=== PATIENT | male | born 1980 | race Hispanic/Latino ===

== ENCOUNTER 2018-03-18 16:24 | Emergency (ER) | payer BC ==
--- NOTE | 2018-03-18 17:21 | ER ---
Nurse's Notes [facility] Name: Tyler Diamond Jr Age: 37 yrs Sex: Male : 1980 Arrival Date: 03/18/2018 Time: 16:28 Bed Waiting Private MD: Diagnosis: Presentation: 03/18 16:29 Presenting complaint: Patient states: they gave (dr. fan) gave me this medicine tw2 yesterday (Metformin 500 mg 1 tab twice a day). Transition of care: patient was not received from another setting of care. 16:29 Method Of Arrival: Ambulatory tw2 16:32 Onset of symptoms was March 18, 2018. Risk Assessment: Do you want to hurt yourself tw2 or someone else? Patient reports no desire to harm self or others. Initial Sepsis Screen: Does the patient meet any 2 criteria? No. Patient's initial sepsis screen is negative. Does the patient have a suspected source of infection? No. Patient's initial sepsis screen is negative. Care prior to arrival: None. 16:32 Acuity: ANNA MARIE 3 tw2 Historical: - Allergies: 16:32 No Known Drug Allergies; tw2 - Home Meds: 16:32 lisinopril 20 mg Oral tab 1 tab BID for Hypertension [Active]; metformin 500 mg Oral tw2 tab 1 tab 2 times per day [Active]; - PMHx: 16:32 Anxiety; Hypertension; tw2 - PSHx: 16:32 None; tw2 - Immunization history:: Adult Immunizations. - Social history:: Smoking status: . - Ebola Screening: : Patient negative for fever greater than or equal to 101.5 degrees Fahrenheit, and additional compatible Ebola Virus Disease symptoms. Vital Signs: 16:31 BP 150 / 87; Pulse 117; Resp 18; Temp 97.7(TE); Pulse Ox 100% on R/A; Pain 0/10; tw2 ED Course: 16:28 Patient arrived in ED. sb2 16:31 Arm band placed on. tw2 16:32 Triage completed. tw2 Administered Medications: No medications were administered Point of Care Testing: Blood Glucose: 16:35 Blood Glucose: 124 mg/dL; tw2 Ranges: Outcome: 17:19 Eloped from waiting room, post triage evaluation and consult. pt asked Verenice in tw2 registration if he needed to sign anything and said "im just going to go" Time discovered patient gone: March 18, 2018 at 17:20 17:19 Condition: stable 17:20 Patient left the ED. tw2 Signatures: Sandra Alvarenga RN RN tw2 Verenice Sanford sb2
== END 2018-03-18 17:20 | disposition left against medical advice (07) ==
LOC: ER 16:24
DX: Z53.21 Procedure and treatment not carried out due to patient leaving prior to being seen by health care provider (principal); I10 Essential (primary) hypertension; Z79.84 Long term (current) use of oral hypoglycemic drugs; Z79.899 Other long term (current) drug therapy
CPT/HCPCS: 82962; 99281

== ENCOUNTER 2018-04-18 00:22 | Emergency (ER) | payer BC, SELFPAY ==
[2018-04-18 02:04] LABS: Absolute Lymphocytes (CBC) 1.6 K/uL (0.7-4.9); Absolute Monocytes 0.7 K/uL (0.1-1.3); Absolute Neutrophil 2.2 K/uL (1.8-8.0); Basophils % 0.8 % (0-1.3); Eosinophils % 1.4 % (0-4.4); Hematocrit 39.7 % (39.6-49.0); Lymphocytes % 34.8 % (15.3-44.8); MPV 10.6 fL (7.6-11.3); RBC Red Blood Cell Count 4.63 M/uL (4.33-5.43)
[2018-04-18 02:11] LABS: Urine Bacteria <20 /HPF (NONE SEEN); Urine Culture Reflex Order NOT NEEDED; Urine RBC <5 /HPF (NONE SEEN)
[2018-04-18 02:25] LABS: BUN Blood Urea Nitrogen 16 mg/dL (7-18); Bicarbonate 24 mmol/L (21-32); Glucose Level 155 mg/dL (74-106); Magnesium 2.1 mg/dL (1.8-2.4); Potassium 3.6 mmol/L (3.5-5.1); Sodium Level 134 mmol/L (136-145)
[2018-04-18 02:31] LABS: Urine Blood TRACE (NEG); Urine Glucose NEGATIVE (NEG); Urine Protein NEGATIVE (NEG); Urine Specific Gravity <1.005 (1.005-1.030)
[2018-04-18] MEDS ORDERED: ONDANSETRON 4 MG/2 ML VIAL ONE (02:42)
[2018-04-18] MEDS ORDERED: METOCLOPRAMIDE 10 MG/2mL INJ ONE (02:42)
[2018-04-18] MEDS ORDERED: NA CHLORIDE 0.9% 1,000 ML ONE (02:43)
--- NOTE | 2018-04-18 03:20 | EDPHYS ---
Physician Documentation [facility] Name: Tyler Diamond Jr Age: 37 yrs Sex: Male : 1980 Arrival Date: 04/18/2018 Time: 00:24 Bed 14 Private MD: ED Physician Vipul Mejia HPI: 04/18 01:35 This 37 yrs old Male presents to ER via Ambulatory with complaints of Headache.cp 01:35 The patient complains of pain to the forehead. The patient describes the headache as cp aching, pounding, waxing and waning. Onset: The symptoms/episode began/occurred yesterday, and became worse this morning, now improved after taking blood pressure medication and OTC ibuprofen. Associated signs and symptoms: Pertinent positives: sinus congestion, Pertinent negatives: altered mental status, neck stiffness, paresthesias, vomiting, weakness. Historical: - Allergies: 00:45 No Known Allergies; cc3 - Home Meds: 00:45 lisinopril 20 mg Oral tab 1 tab BID for Hypertension [Active]; metformin 500 mg Oral cc3 tab 1 tab 2 times per day [Active]; - PMHx: 00:45 Anxiety; Hypertension; Diabetes - NIDDM; cc3 - PSHx: 00:45 feet surgery; cc3 - Immunization history:: Adult Immunizations not up to date. - Social history:: Smoking status: Patient/guardian denies using tobacco, but has a distant history of tobacco abuse. - Ebola Screening: : No symptoms or risks identified at this time. ROS: 01:40 Constitutional: Negative for body aches, chills, fever, poor PO intake. cp 01:40 Eyes: Negative for injury, pain, redness, and discharge. cp 01:40 Cardiovascular: Negative for chest pain, edema, palpitations. cp 01:40 ENT: Positive for sinus congestion, Negative for drainage from ear(s), ear pain, cp difficulty swallowing, difficulty handling secretions. 01:40 Respiratory: Positive for cough, Negative for shortness of breath, wheezing. 01:40 Abdomen/GI: Negative for abdominal pain, vomiting, diarrhea, constipation. 01:40 Skin: Negative for cellulitis, rash. 01:40 Neuro: Positive for headache, Negative for altered mental status, weakness. 01:40 All other systems are negative. Exam: 01:45 Constitutional: The patient appears in no acute distress, alert, awake, cp non-diaphoretic, non-toxic, well developed, well nourished. 01:45 Eyes: Pupils equal round and reactive to light, extra-ocular motions intact. Lids and cp lashes normal. Conjunctiva and sclera are non-icteric and not injected. Cornea within normal limits. Periorbital areas with no swelling, redness, or edema. 01:45 Head/face: Exam is negative for obvious evidence of injury or deformity, swelling, Noted is tenderness, that is mild, of the forehead. 01:45 ENT: External ear(s): are unremarkable, Ear canal(s): are normal, clear, TM's: dullness, bilaterally, Nose: is normal, Mouth: Lips: moist, Oral mucosa: pink and intact, moist, Posterior pharynx: Airway: no evidence of obstruction, patent, Tonsils: are normal in appearance, Uvula: midline, swelling, is not appreciated, erythema, is not appreciated, exudate, is not appreciated, Voice: is normal. 01:45 Neck: ROM/movement: is normal, is supple, without pain, no range of motions limitations, no meningismus, no nuchal rigidity, Lymph nodes: no appreciated lymphadenopathy. 01:45 Chest/axilla: Inspection: normal, Palpation: is normal, no crepitus, no tenderness. 01:45 Cardiovascular: Rate: tachycardic, Rhythm: regular, Edema: is not appreciated, JVD: is not appreciated. 01:45 Respiratory: the patient does not display signs of respiratory distress, Respirations: normal, no use of accessory muscles, no retractions, no splinting, no tachypnea, labored breathing, is not present, Breath sounds: are clear throughout, no decreased breath sounds, no stridor, no wheezing. 01:45 Abdomen/GI: Inspection: abdomen appears normal, Bowel sounds: active, all quadrants, Palpation: abdomen is soft and non-tender, in all quadrants, rebound tenderness, is not appreciated, voluntary guarding, is not appreciated, involuntary guarding, is not appreciated. 01:45 Back: pain, is absent, ROM is normal. 01:45 Skin: cellulitis, is not appreciated, no rash present. 01:45 Neuro: Orientation: to person, place \T\ time. Mentation: is normal, Cerebellar function: is grossly normal, Motor: is normal, Sensation: is normal. Vital Signs: 00:45 BP 121 / 88; Pulse 102; Resp 20 S; Temp 98.1; Pulse Ox 100% on R/A; Weight 137.44 kg cc3 (R); Height 6 ft. 1 in. (185.42 cm) (R); Pain 6/10; 02:20 BP 122 / 78; Pulse 98; Resp 19 S; Pulse Ox 100% on R/A; cc3 03:15 BP 120 / 72; Pulse 99; Resp 19 S; Pulse Ox 99% on R/A; cc3 00:45 Body Mass Index 39.98 (137.44 kg, 185.42 cm) cc3 MDM: 01:02 Patient medically screened. cp 01:40 Differential diagnosis: meningitis, meningoencephalitis, migraine, sinusitis, cp subarachnoid bleed, tension headache. 03:18 Data reviewed: vital signs, nurses notes, lab test result(s), radiologic studies, CT cp scan. Response to treatment: the patient's symptoms have markedly improved after treatment, VSS. Patient reports headache markedly improved, and as a result, I will discharge patient. 04/18 01:41 Order name: CBC with Diff cp 04/18 01:41 Order name: BMP cp 04/18 01:41 Order name: Magnesium cp 04/18 01:41 Order name: Urine Microscopic Only; Complete Time: 02:47 cp 04/18 02:47 Interpretation: Reviewed. cp 04/18 01:42 Order name: CBC with Automated Diff; Complete Time: 02:47 EDMS 04/18 02:47 Interpretation: Normal except: MN% 15.0. cp 04/18 01:42 Order name: Basic Metabolic Panel; Complete Time: 02:47 EDMS 04/18 02:47 Interpretation: Normal except: NA 134; GLUC 155. cp 04/18 01:41 Order name: CT Head Brain wo Cont cp 04/18 01:41 Order name: IV; Complete Time: 02:30 cp 04/18 01:41 Order name: Urine Dipstick-Ancillary (obtain specimen); Complete Time: 02:25 cp 04/18 01:42 Order name: Magnesium; Complete Time: 02:47 EDMS 04/18 02:48 Interpretation: MG 2.1; Reviewed. cp 04/18 02:26 Order name: Urine Dipstick--Ancillary (enter results); Complete Time: 02:47 em1 04/18 02:47 Interpretation: Normal except: UBLD TRACE. cp Administered Medications: 02:30 Drug: NS 0.9% 1000 ml Route: IV; Rate: 1 bolus; Site: right antecubital; cc3 03:30 Follow up: Response: No adverse reaction; IV Status: Completed infusion; IV Intake: cc3 1000ml 02:35 Drug: Zofran 4 mg Route: IVP; Site: right antecubital; cc3 03:00 Follow up: Response: No adverse reaction; Nausea is decreased cc3 02:40 Drug: Reglan 10 mg Route: IVP; Site: right antecubital; cc3 03:00 Follow up: Response: No adverse reaction cc3 Disposition: 03:34 Co-signature as Attending Physician, Vipul Mejia MD. pkl Disposition: 04/18/18 03:20 Discharged to Home. Impression: Headache. - Condition is Stable. - Discharge Instructions: General Headache Without Cause, How to Take Your Blood Pressure, [id number], Form - Blood Pressure Record Sheet. - Medication Reconciliation Form, Thank You Letter, Antibiotic Education, Prescription Opioid Use form. - Follow up: Private Physician; When: 2 - 3 days; Reason: Recheck today's complaints. - Problem is new. - Symptoms have improved. Signatures: Dispatcher [employer] Vipul Browning MD MD pkl Azael Barrera PA PA cp Cordel, Charlene cc3 Corrections: (The following items were deleted from the chart) 03:33 03:20 04/18/2018 03:20 Discharged to Home. Impression: Headache. Condition is Stable. cc3 Forms are Medication Reconciliation Form, Thank You Letter, Antibiotic Education, Prescription Opioid Use. Follow up: Private Physician; When: 2 - 3 days; Reason: Recheck today's complaints. Problem is new. Symptoms have improved. cp
--- NOTE | 2018-04-18 03:20 | ER ---
Nurse's Notes [facility] Name: Tyler Diamond Jr Age: 37 yrs Sex: Male : 1980 Arrival Date: 04/18/2018 Time: 00:24 Bed 14 Private MD: Diagnosis: Headache Presentation: 04/18 00:45 Presenting complaint: Patient states: headache since yesterday and fever since 3 days cc3 back. Transition of care: patient was not received from another setting of care. Onset of symptoms was April 16, 2018. Risk Assessment: Do you want to hurt yourself or someone else? Patient reports no desire to harm self or others. Initial Sepsis Screen: Does the patient meet any 2 criteria? No. Patient's initial sepsis screen is negative. Does the patient have a suspected source of infection? No. Patient's initial sepsis screen is negative. Care prior to arrival: Medication(s) given: Lisinopril at 0015H. 00:45 Method Of Arrival: Ambulatory cc3 00:45 Acuity: ANNA MARIE 3 cc3 Triage Assessment: 00:45 Headache History: The patient has had previous headaches and this one is different than cc3 previous episodes. General: Appears in no apparent distress. uncomfortable, Behavior is calm, cooperative, appropriate for age. Pain: Pain currently is 7 out of 10 on a pain scale. Pain began 1 day ago. Neuro: Level of Consciousness is awake, alert, obeys commands, Oriented to person, place, time, situation, Appropriate for age. 00:45 Pain: Also complains of no other associated symptoms. cc3 Historical: - Allergies: 00:45 No Known Allergies; cc3 - Home Meds: 00:45 lisinopril 20 mg Oral tab 1 tab BID for Hypertension [Active]; metformin 500 mg Oral cc3 tab 1 tab 2 times per day [Active]; - PMHx: 00:45 Anxiety; Hypertension; Diabetes - NIDDM; cc3 - PSHx: 00:45 feet surgery; cc3 - Immunization history:: Adult Immunizations not up to date. - Social history:: Smoking status: Patient/guardian denies using tobacco, but has a distant history of tobacco abuse. - Ebola Screening: : No symptoms or risks identified at this time. Screenin:45 Abuse screen: Denies threats or abuse. Denies injuries from another. Nutritional cc3 screening: No deficits noted. Tuberculosis screening: No symptoms or risk factors identified. Fall Risk Ambulatory Aid- None/Bed Rest/Nurse Assist (0 pts). Gait- Normal/Bed Rest/Wheelchair (0 pts) Mental Status- Oriented to own ability (0 pts). Assessment: 01:20 Reassessment: Patient appears in no apparent distress at this time. Patient and/or cc3 family updated on plan of care and expected duration. Pain level reassessed. Patient is alert, oriented x 3, equal unlabored respirations, skin warm/dry/pink. 02:18 Reassessment: Patient appears in no apparent distress at this time. Patient and/or cc3 family updated on plan of care and expected duration. Pain level reassessed. Patient is alert, oriented x 3, equal unlabored respirations, skin warm/dry/pink. 03:30 Reassessment: Patient appears in no apparent distress at this time. Patient and/or cc3 family updated on plan of care and expected duration. Pain level reassessed. Patient is alert, oriented x 3, equal unlabored respirations, skin warm/dry/pink. LONNIE Barrera discharged the patient home, no prescription given. IV cannula removed and patient left ER vitally stable and ambulatory with his . Vital Signs: 00:45 BP 121 / 88; Pulse 102; Resp 20 S; Temp 98.1; Pulse Ox 100% on R/A; Weight 137.44 kg cc3 (R); Height 6 ft. 1 in. (185.42 cm) (R); Pain 6/10; 02:20 BP 122 / 78; Pulse 98; Resp 19 S; Pulse Ox 100% on R/A; cc3 03:15 BP 120 / 72; Pulse 99; Resp 19 S; Pulse Ox 99% on R/A; cc3 00:45 Body Mass Index 39.98 (137.44 kg, 185.42 cm) cc3 ED Course: 00:24 Patient arrived in ED. ag3 00:45 Shi Aguiar is Primary Nurse. cc3 00:45 Arm band placed on right wrist. cc3 00:45 Patient has correct armband on for positive identification. Bed in low position. Call cc3 light in reach. Side rails up X 1. Pulse ox on. NIBP on. 00:58 Triage completed. cc3 01:02 Aazel Barrera PA is PHCP. cp 01:02 Vipul Mejia MD is Attending Physician. cp 02:[address] via wheelchair. kw1 02:13 CT Head Brain wo Cont In Process Unspecified. EDMS 02:14 CT completed. Patient tolerated procedure well. Patient moved back from CT. kw1 03:30 No provider procedures requiring assistance completed. IV discontinued, intact, cc3 bleeding controlled, No redness/swelling at site. Pressure dressing applied. Administered Medications: 02:30 Drug: NS 0.9% 1000 ml Route: IV; Rate: 1 bolus; Site: right antecubital; cc3 03:30 Follow up: Response: No adverse reaction; IV Status: Completed infusion; IV Intake: cc3 1000ml 02:35 Drug: Zofran 4 mg Route: IVP; Site: right antecubital; cc3 03:00 Follow up: Response: No adverse reaction; Nausea is decreased cc3 02:40 Drug: Reglan 10 mg Route: IVP; Site: right antecubital; cc3 03:00 Follow up: Response: No adverse reaction cc3 Intake: 03:30 IV: 1000ml; Total: 1000ml. cc3 Outcome: 03:20 Discharge ordered by MD. cp 03:30 Discharged to home ambulatory, with family. cc3 03:30 Condition: stable 03:30 Discharge instructions given to patient, family, Instructed on discharge instructions, follow up and referral plans. Demonstrated understanding of instructions, follow-up care. 03:33 Patient left the ED. cc3 Signatures: Dispatcher [employer] EDGA Azael Barrera PA PA cp Wilhelm, Kimberly kw1 Shi Aguiar cc3 Khushbu Craig 3
--- NOTE | 2018-04-18 10:09 | RAD REPORT ---
EXAM DESCRIPTION: CT - Head Brain Wo Cont - 04/18/2018 6:23 am CLINICAL HISTORY: Headache COMPARISON: 2016 TECHNIQUE: Computed axial tomography of the head was obtained. IV contrast was not requested. Prelim inary report generated by virtual radiologic and review prior to dictation All CT scans are performed using dose optimization technique as appropriate and may include automated exposure control or mA/KV adjustment according to patient size. FINDINGS: An intracranial bleed is not seen . The ventricles are normal in caliber. No extra-axial fluid collection is noted. Fluid within the sinuses/ mastoids is not seen. IMPRESSION: No acute intracranial abnormality is seen. If patient's symptoms persist MRI of the bra in would be recommended.
== END 2018-04-18 03:33 | disposition home or self-care (01) ==
LOC: ER 00:22
DX: R51 Headache (principal); I10 Essential (primary) hypertension; F41.9 Anxiety disorder, unspecified; E11.9 Type 2 diabetes mellitus without complications
CPT/HCPCS: 36415; 70450; 80048; 81003; 81015; 83735; 85025; 96361; 96374; 96375; 99284; J2405; J2765; J7030

== ENCOUNTER 2018-04-28 09:24 | Emergency (ER) | payer BC, SELFPAY ==
[2018-04-28] MEDS ORDERED: MORPHINE 4 MG/ML SYR ONE (10:21)
[2018-04-28] MEDS ORDERED: DIAZEPAM 10 MG/2 ML INJ SYRINGE ONE (10:22)
[2018-04-28] MEDS ORDERED: KETOROLAC 30 MG/ML INJ ONE ×2 (10:23→10:52)
--- NOTE | 2018-04-28 10:39 | RAD REPORT ---
EXAM DESCRIPTION: US - Extremity Venous Uni Ltd - 04/28/2018 10:27 am CLINICAL HISTORY: PAIN Leg swelling and edema. COMPARISON: No comparisons FINDINGS: Left lower extremity venous system was interrogated with Doppler technique. Normal flow, c ompressibility and augmentation was noted. There is no DVT present. IMPRESSION: No evidence of left lower extremity deep venous thrombosis.
--- NOTE | 2018-04-28 11:19 | ER ---
Nurse's Notes [facility] Name: Tyler Diamond Jr Age: 37 yrs Sex: Male : 1980 Arrival Date: 04/28/2018 Time: 09:29 Bed 19 Private MD: Tigre Alegria Diagnosis: Sciatica, left side Presentation: 04/28 09:49 Presenting complaint: Patient states: pain to left leg X 3 days, radiates from left iw lower back to left calf, went to chiropractor yesterday, had xray done, pain 2/10 while sitting, 10/10 when walking. Transition of care: patient was not received from another setting of care. Onset of symptoms was April 25, 2018. Risk Assessment: Do you want to hurt yourself or someone else? Patient reports no desire to harm self or others. Initial Sepsis Screen: Does the patient meet any 2 criteria? No. Patient's initial sepsis screen is negative. Does the patient have a suspected source of infection? No. Patient's initial sepsis screen is negative. Care prior to arrival: None. 09:49 Method Of Arrival: Wheelchair iw 09:49 Acuity: ANNA MARIE 4 iw Historical: - Allergies: 09:52 No Known Allergies; iw - Home Meds: 09:52 lisinopril 20 mg Oral tab 1 tab BID for Hypertension [Active]; metformin 500 mg Oral iw tab 1 tab 2 times per day [Active]; - PMHx: 09:52 Anxiety; Diabetes - NIDDM; Hypertension; iw - PSHx: 09:52 feet surgery; iw - Immunization history:: Adult Immunizations not up to date. - Social history:: Smoking status: Patient/guardian denies using tobacco. - Ebola Screening: : Patient negative for fever greater than or equal to 101.5 degrees Fahrenheit, and additional compatible Ebola Virus Disease symptoms Patient denies exposure to infectious person Patient denies travel to an Ebola-affected area in the 21 days before illness onset No symptoms or risks identified at this time. Screenin:35 Abuse screen: Denies threats or abuse. Denies injuries from another. Nutritional jl7 screening: No deficits noted. Tuberculosis screening: No symptoms or risk factors identified. Fall Risk Gait- Impaired (20 pts.). Assessment: 10:35 General: Appears in no apparent distress. uncomfortable, Behavior is cooperative, jl7 anxious. Pain: Complains of pain in left low back Pain radiates to left leg Pain currently is 2 out of 10 on a pain scale. Quality of pain is described as sharp, shooting, Is continuous, Aggravated by increased activity, weight bearing, Noted to be grimacing, moaning, restless. Neuro: Level of Consciousness is awake, alert, obeys commands, Oriented to person, place, time, situation. Cardiovascular: Patient's skin is warm and dry. Respiratory: Airway is patent Respiratory effort is even, unlabored, Respiratory pattern is regular, symmetrical. Derm: Skin is pink, warm \T\ dry. Musculoskeletal: Reports. 11:36 Reassessment: Patient appears in no apparent distress at this time. Patient and/or jl7 family updated on plan of care and expected duration. Pain level reassessed. Patient is alert, oriented x 3, equal unlabored respirations, skin warm/dry/pink. Vital Signs: 09:52 BP 134 / 82; Pulse 83; Resp 16; Pulse Ox 100% on R/A; Weight 122.47 kg; Height 6 ft. 2 iw in. (187.96 cm); Pain 2/10; 10:35 BP 121 / 79; Pulse 72; Resp 18 S; Pulse Ox 99% on R/A; jl7 11:36 BP 125 / 80; Pulse 70; Resp 16 S; Pulse Ox 99% on R/A; jl7 09:52 Body Mass Index 34.67 (122.47 kg, 187.96 cm) iw ED Course: 09:29 Patient arrived in ED. mr 09:29 Tigre Alegria is Private Physician. mr 09:45 Azael Barrera PA is PHCP. cp 09:45 Isma Savage MD is Attending Physician. cp 09:50 Karlee Shin RN is Primary Nurse. jl7 09:51 Triage completed. iw 09:52 Arm band placed on. iw 10:29 US Extremity Venous Unilateral Ltd In Process Unspecified. EDMS 10:35 Patient has correct armband on for positive identification. Bed in low position. Call jl7 light in reach. Side rails up X 1. Pulse ox on. NIBP on. 11:36 No provider procedures requiring assistance completed. Patient did not have IV access jl7 during this emergency room visit. Administered Medications: 10:40 Drug: Diazepam 5 mg Route: IM; Site: right deltoid; jl7 11:36 Follow up: Response: No adverse reaction; Pain is decreased jl7 10:45 Drug: TORadol 60 mg Route: IM; Site: left deltoid; jl7 11:36 Follow up: Response: No adverse reaction; Pain is decreased jl7 10:49 Not Given (Patient Refused): morphine 4 mg IM once jl7 Outcome: 11:18 Discharge ordered by . ricky 11:36 Discharged to home ambulatory, with family. jl7 11:36 Condition: stable 11:36 Discharge instructions given to patient, family, Instructed on discharge instructions, follow up and referral plans. medication usage, Demonstrated understanding of instructions, follow-up care, medications, Prescriptions given X 3. 11:37 Patient left the ED. jl7 Signatures: Dispatcher [employer] Erika Koroma Irene, RN Azael Walker PA PA cp Leal, Jahala, RN RN jl7
--- NOTE | 2018-04-28 11:19 | EDPHYS ---
Physician Documentation [facility] Name: Tyler Diamond Jr Age: 37 yrs Sex: Male : 1980 Arrival Date: 04/28/2018 Time: 09:29 Bed 19 Private MD: Tigre Alegria ED Physician Isma Savage HPI: 04/28 10:05 This 37 yrs old Male presents to ER via Wheelchair with complaints of Leg Pain.cp 10:05 The patient presents with pain, that is acute. The complaints affect the left buttock cp and left leg. 10:05 Onset: The symptoms/episode began/occurred 3 day(s) ago. cp 10:05 Context: resulted from an unknown cause, the patient can fully bear weight, the patient cp is able to ambulate, with mild difficulty. Associated signs and symptoms: Pertinent positives: calf tenderness, Pertinent negatives fever, numbness, warmth, weakness. Patient reports he was seen by chiropractor yesterday and diagnosed with sciatica. Xrays were taken and patient reports having appt with PCP next week. Historical: - Allergies: 09:52 No Known Allergies; iw - Home Meds: :52 lisinopril 20 mg Oral tab 1 tab BID for Hypertension [Active]; metformin 500 mg Oral iw tab 1 tab 2 times per day [Active]; - PMHx: 09:52 Anxiety; Diabetes - NIDDM; Hypertension; iw - PSHx: 09:52 feet surgery; iw - Immunization history:: Adult Immunizations not up to date. - Social history:: Smoking status: Patient/guardian denies using tobacco. - Ebola Screening: : Patient negative for fever greater than or equal to 101.5 degrees Fahrenheit, and additional compatible Ebola Virus Disease symptoms Patient denies exposure to infectious person Patient denies travel to an Ebola-affected area in the 21 days before illness onset No symptoms or risks identified at this time. ROS: 10:10 MS/extremity: Positive for pain, tenderness, of the left buttock and left leg, Negative cp for injury or acute deformity, paresthesias. 10:10 Constitutional: Negative for fever, chills, and weight loss. cp 10:10 Cardiovascular: Negative for chest pain, palpitations. 10:10 Respiratory: Negative for cough, shortness of breath, wheezing. 10:10 : Negative for urinary symptoms, testicular pain 10:10 Neuro: Negative for altered mental status, headache, numbness, weakness. 10:10 All other systems are negative. Exam: 10:20 Constitutional: The patient appears in no acute distress, alert, awake, non-toxic, well cp developed, well nourished. 10:20 Head/Face: Normocephalic, atraumatic. cp 10:20 Eyes: Periorbital structures: appear normal, Conjunctiva: normal, no exudate, no injection, Sclera: no appreciated abnormality, Lids and lashes: appear normal, bilaterally. 10:20 ENT: External ear(s): are unremarkable, Nose: is normal, Mouth: Lips: moist, Oral mucosa: pink and intact, moist, Posterior pharynx: is normal, airway is patent, no erythema, no exudate. 10:20 Neck: ROM/movement: is normal, is supple, without pain, no range of motions limitations, no nuchal rigidity. 10:20 Chest/axilla: Inspection: normal, Palpation: is normal, no crepitus, no tenderness. 10:20 Cardiovascular: Rate: normal, Rhythm: regular. 10:20 Respiratory: the patient does not display signs of respiratory distress, Respirations: normal, no use of accessory muscles, no retractions, no splinting, no tachypnea, labored breathing, is not present, Breath sounds: are clear throughout, no decreased breath sounds, no stridor, no wheezing. 10:20 Abdomen/GI: Inspection: abdomen appears normal, Palpation: abdomen is soft and non-tender, in all quadrants. 10:20 Back: pain, is absent, ROM is normal. 10:20 Musculoskeletal/extremity: Extremities: grossly normal except: noted in the left buttock and posterior aspect left leg: pain, tenderness, There is no evidence of decreased ROM, deformity, Perfusion: the extremity is normally perfused throughout, Sensation intact. 10:20 Skin: cellulitis, is not appreciated, no rash present. 10:20 Neuro: Orientation: to person, place \T\ time. Mentation: is normal, Motor: moves all fours, strength is normal, Sensation: is normal, Gait: is steady, Deep tendon reflexes are 2+ (normal) in the right patellar, right Achilles, left patellar and left Achilles. Vital Signs: 09:52 BP 134 / 82; Pulse 83; Resp 16; Pulse Ox 100% on R/A; Weight 122.47 kg; Height 6 ft. 2 iw in. (187.96 cm); Pain 2/10; 10:35 BP 121 / 79; Pulse 72; Resp 18 S; Pulse Ox 99% on R/A; jl7 11:36 BP 125 / 80; Pulse 70; Resp 16 S; Pulse Ox 99% on R/A; jl7 09:52 Body Mass Index 34.67 (122.47 kg, 187.96 cm) iw MDM: 09:45 Patient medically screened. cp 10:00 Differential diagnosis: sciatica, cauda equina, spinal stenosis, DVT. cp 11:15 Data reviewed: vital signs, nurses notes, radiologic studies, ultrasound. cp 11:15 Counseling: I had a detailed discussion with the patient and/or guardian regarding: the cp historical points, exam findings, and any diagnostic results supporting the discharge/admit diagnosis, radiology results, the need for outpatient follow up, a family practitioner, to return to the emergency department if symptoms worsen or persist or if there are any questions or concerns that arise at home. Response to treatment: the patient's symptoms have mildly improved after treatment, and as a result, I will discharge patient. 04/28 09:58 Order name: US Extremity Venous Unilateral Ltd; Complete Time: 11:02 cp 04/28 11:02 Interpretation: Report reviewed. cp Administered Medications: 10:40 Drug: Diazepam 5 mg Route: IM; Site: right deltoid; jl7 11:36 Follow up: Response: No adverse reaction; Pain is decreased jl7 10:45 Drug: TORadol 60 mg Route: IM; Site: left deltoid; jl7 11:36 Follow up: Response: No adverse reaction; Pain is decreased jl7 10:49 Not Given (Patient Refused): morphine 4 mg IM once jl7 Disposition: 18:13 Co-signature as Attending Physician, Isma Savage MD Available for consultation at ps1 all times . Disposition: 04/28/18 11:18 Discharged to Home. Impression: Sciatica, left side. - Condition is Stable. - Discharge Instructions: Sciatica, Back Exercises. - Prescriptions for Cyclobenzaprine 10 mg Oral Tablet - take 1 tablet by ORAL route every 8 hours As needed no driving while taking medication; 20 tablet. Tramadol 50 mg Oral Tablet - take 1 tablet by ORAL route every 8 hours as needed. no driving while taking medication; 15 tablet. Medrol (Ancelmo) 4 mg Oral Tablets, Dose Pack - take 1 tablet by ORAL route as directed - follow package instructions; 1 packet. - Medication Reconciliation Form, Thank You Letter, Antibiotic Education, Prescription Opioid Use, Work release form form. - Follow up: Private Physician; When: 2 - 3 days; Reason: Recheck today's complaints. - Problem is new. - Symptoms have improved. Signatures: Dispatcher [employer] EDMS Sultana Anthony RN RN iw Azael Barrera PA PA Karlee Buchanan RN RN jl7 Isma Savage MD MD ps1 Corrections: (The following items were deleted from the chart) 11:37 11:18 04/28/2018 11:18 Discharged to Home. Impression: Sciatica, left side. Condition jl7 is Stable. Forms are Medication Reconciliation Form, Thank You Letter, Antibiotic Education, Prescription Opioid Use. Follow up: Private Physician; When: 2 - 3 days; Reason: Recheck today's complaints. Problem is new. Symptoms have improved. cp
== END 2018-04-28 11:37 | disposition home or self-care (01) ==
LOC: ER 09:24
DX: M54.32 Sciatica, left side (principal); E11.9 Type 2 diabetes mellitus without complications; I10 Essential (primary) hypertension; Z79.84 Long term (current) use of oral hypoglycemic drugs; Z79.899 Other long term (current) drug therapy
CPT/HCPCS: 93971; 96372; 99284; J3360

== ENCOUNTER 2018-09-08 21:34 | Emergency (ER) | payer BC ==
[2018-09-08 22:11] LABS: Absolute Lymphocytes (CBC) 2.6 K/uL (0.7-4.9); Absolute Monocytes 0.9 K/uL (0.1-1.3); Absolute Neutrophil 6.8 K/uL (1.8-8.0); Basophils % 0.4 % (0-1.3); Eosinophils % 1.4 % (0-4.4); Hematocrit 39.5 % (39.6-49.0); MPV 10.1 fL (7.6-11.3); Monocytes % 8.4 % (3.3-12.3); Protime INR 0.98; RBC Red Blood Cell Count 4.55 M/uL (4.33-5.43)
[2018-09-08 22:29] LABS: ALT/SGPT 29 U/L (12-78); AST/SGOT 17 U/L (15-37); Alkaline Phosphatase 53 U/L (45-117); BUN Blood Urea Nitrogen 10 mg/dL (7-18); Bicarbonate 27 mmol/L (21-32); Bilirubin Direct 0.1 mg/dL (0-0.2); Bilirubin Total 0.5 mg/dL (0.2-1.0); CKMB Creatine Kinase MB 1.1 ng/mL (0.3-3.6); Creatine Phosphokinase 145 U/L (39-308); Glucose Level 123 mg/dL (74-106); NT PRO-BNP 28 pg/mL (<125); Potassium 3.7 mmol/L (3.5-5.1); Protein, Total 7.4 g/dL (6.4-8.2); Sodium Level 134 mmol/L (136-145); Troponin (Emerg Dept Use Only) < 0.02 ng/mL (0.0-0.045)
[2018-09-08] MEDS ORDERED: NA CHLORIDE 0.9% 1,000 ML ONE (23:25)
--- NOTE | 2018-09-08 23:44 | ER ---
Nurse's Notes [facility] Name: Tyler Diamond Jr Age: 38 yrs Sex: Male : 1980 Arrival Date: 09/08/2018 Time: 21:43 Bed 30 Private MD: Diagnosis: Weakness;Dizziness and giddiness Presentation: 09/08 21:44 Presenting complaint: Patient states: I got home from work around 4 and I was dizzy and ed1 I felt like I was going to pass away. Transition of care: patient was not received from another setting of care. Onset of symptoms was September 08, 2018. Risk Assessment: Do you want to hurt yourself or someone else? Patient reports no desire to harm self or others. Initial Sepsis Screen: Does the patient meet any 2 criteria? No. Patient's initial sepsis screen is negative. Does the patient have a suspected source of infection? No. Patient's initial sepsis screen is negative. Care prior to arrival: None. 21:44 Method Of Arrival: Ambulatory ed1 21:44 Acuity: ANNA MARIE 3 ed1 Triage Assessment: 21:45 General: Appears in no apparent distress. Behavior is calm, cooperative. Pain: Denies ed1 pain. Historical: - Allergies: 21:45 No Known Allergies; ed1 - Home Meds: 21:45 lisinopril 20 mg Oral tab 1 tab BID for Hypertension [Active]; metformin 500 mg Oral ed1 tab 1 tab 2 times per day [Active]; - PMHx: 21:45 Anxiety; Diabetes - NIDDM; Hypertension; ed1 - PSHx: 21:45 None; ed1 - Immunization history:: Adult Immunizations up to date. - Social history:: Smoking status: Patient uses tobacco products, denies chronic smoking, but will smoke occasionally. - Ebola Screening: : Patient negative for fever greater than or equal to 101.5 degrees Fahrenheit, and additional compatible Ebola Virus Disease symptoms Patient denies exposure to infectious person Patient denies travel to an Ebola-affected area in the 21 days before illness onset No symptoms or risks identified at this time. Screenin:23 Abuse screen: Denies threats or abuse. Denies injuries from another. Nutritional ls4 screening: No deficits noted. Tuberculosis screening: No symptoms or risk factors identified. Fall Risk No fall in past 12 months (0 pts). No secondary diagnosis (0 pts). IV access (20 points). Ambulatory Aid- None/Bed Rest/Nurse Assist (0 pts). Gait- Normal/Bed Rest/Wheelchair (0 pts) Mental Status- Oriented to own ability (0 pts). Total Renee Fall Scale indicates No Risk (0-24 pts). Assessment: 22:24 General: Appears in no apparent distress. Behavior is calm, cooperative. Pain: Denies ls4 pain. Neuro: No deficits noted. Cardiovascular: No deficits noted. Respiratory: Airway is patent Respiratory effort is even, unlabored, Respiratory pattern is regular, Breath sounds are clear bilaterally. GI: No deficits noted. : No deficits noted. Derm: Skin is pink, warm \T\ dry. Musculoskeletal: No deficits noted. 23:12 Reassessment: Patient appears in no apparent distress at this time. Patient and/or ls4 family updated on plan of care and expected duration. Pain level reassessed. Patient is alert, oriented x 3, equal unlabored respirations, skin warm/dry/pink. Vital Signs: 21:45 BP 143 / 77; Pulse 85; Resp 19; Temp 97.9; Pulse Ox 100% on R/A; Weight 127.01 kg; ed1 Height 6 ft. 1 in. (185.42 cm); Pain 0/10; 22:42 BP 124 / 70 Supine; Pulse 78; lt1 22:42 BP 129 / 85 Sitting; Pulse 81; lt1 22:42 BP 136 / 91 Standing; Pulse 84; lt1 22:55 BP 128 / 70; Pulse 76; Resp 16; Pulse Ox 99% on R/A; Pain 0/10; ls4 23:54 BP 115 / 68; Pulse 76; Resp 16; Pulse Ox 99% on R/A; Pain 0/10; ls4 21:45 Body Mass Index 36.94 (127.01 kg, 185.42 cm) ed1 ED Course: 21:43 Patient arrived in ED. ed1 21:44 Triage completed. ed1 21:45 Trudi Hicks FNP-C [facility]. kb 21:45 Juwan Childers MD is Attending Physician. kb 21:45 Arm band placed on right wrist. ed1 21:48 Jo Farley, MIK is Primary Nurse. ls4 21:49 Patient has correct armband on for positive identification. Placed in gown. Bed in low ls4 position. Call light in reach. Side rails up X 1. mother repairer on. Pulse ox on. NIBP on. 22:00 No provider procedures requiring assistance completed. Inserted saline lock: 20 gauge ls4 in right antecubital area, using aseptic technique. Blood collected. 22:00 Initial lab(s) drawn, by ED staff, sent to lab. EKG done, by ED staff, reviewed by ls4 Juwan Childers MD. Patient maintains SpO2 saturation greater than 95% on room air. 22:11 XRAY Chest (1 view) In Process Unspecified. EDMS 23:55 IV discontinued, intact, bleeding controlled, No redness/swelling at site. Pressure ls4 dressing applied. Administered Medications: 23:13 Drug: NS 0.9% 1000 ml Route: IV; Rate: 1000 ml; Site: right antecubital; rv 23:54 Follow up: IV Status: Completed infusion; IV Intake: 1000ml ls4 Intake: 23:54 IV: 1000ml; Total: 1000ml. ls4 Outcome: 23:43 Discharge ordered by . kb 23:53 Discharged to home ambulatory, with family. ls4 23:53 Condition: good 23:53 Discharge instructions given to patient, family, Instructed on discharge instructions, follow up and referral plans. medication usage, safety practices, Demonstrated understanding of instructions, follow-up care, medications. 23:56 Patient left the ED. ls4 Signatures: Dispatcher [employer] EDCO Trudi Hicks, ICU MANAGER-Layla WARE-Nicky Wang RN RN ed1 Maury Sheets RN RN rv Jo Farley RN RN ls4 Julia Perez lt1
--- NOTE | 2018-09-08 23:44 | EDPHYS ---
Physician Documentation [facility] Name: Tyler Diamond Jr Age: 38 yrs Sex: Male : 1980 Arrival Date: 09/08/2018 Time: 21:43 Bed 30 Private MD: ED Physician Juwan Childers HPI: 09/08 21:53 This 38 yrs old Male presents to ER via Ambulatory with complaints of Weakness.kb 21:53 The patient presents with dizziness, generalized weakness. Onset: The symptoms/episode kb began/occurred today, at 16:00. Context: occurred at home, occurred while the patient was getting out of truck. just prior to the episode the patient experienced no apparent symptoms. Modifying factors: The symptoms are alleviated by nothing, the symptoms are aggravated by nothing. Associated signs and symptoms: Pertinent positives: headache, Pertinent negatives: abdominal pain, agitation, ataxia, blurred vision, chest pain, combativeness, confusion, diaphoresis, focal weakness, head injury, nausea, near-syncope, numbness, palpitations, , seizure, shortness of breath, syncope, tingling, vomiting. Severity of symptoms: At their worst the symptoms were moderate in the emergency department the symptoms are unchanged. Patient's baseline: Neuro: alert and fully oriented, Motor: no deficits, Ambulation: walks without assistance, Speech: normal. The patient has experienced similar episodes in the past. The patient has not recently seen a physician. Pt reports he felt fine all day, but he got home from work and got dizzy when he got out of his truck. States he laid down for a few hours to see if it got better, but it never did. States he feels weak behind the knees too. . Historical: - Allergies: 21:45 No Known Allergies; ed1 - Home Meds: 21:45 lisinopril 20 mg Oral tab 1 tab BID for Hypertension [Active]; metformin 500 mg Oral ed1 tab 1 tab 2 times per day [Active]; - PMHx: 21:45 Anxiety; Diabetes - NIDDM; Hypertension; ed1 - PSHx: 21:45 None; ed1 - Immunization history:: Adult Immunizations up to date. - Social history:: Smoking status: Patient uses tobacco products, denies chronic smoking, but will smoke occasionally. - Ebola Screening: : Patient negative for fever greater than or equal to 101.5 degrees Fahrenheit, and additional compatible Ebola Virus Disease symptoms Patient denies exposure to infectious person Patient denies travel to an Ebola-affected area in the 21 days before illness onset No symptoms or risks identified at this time. ROS: 21:53 Constitutional: Negative for fever, chills, and weight loss, ENT: Negative for injury, kb pain, and discharge, Neck: Negative for injury, pain, and swelling, Cardiovascular: Negative for chest pain, palpitations, and edema, Respiratory: Negative for shortness of breath, cough, wheezing, and pleuritic chest pain, Abdomen/GI: Negative for abdominal pain, nausea, vomiting, diarrhea, and constipation, Back: Negative for injury and pain, : Negative for injury, bleeding, discharge, and swelling, MS/Extremity: Negative for injury and deformity, Skin: Negative for injury, rash, and discoloration. 21:53 Neuro: Positive for dizziness, headache, Negative for altered mental status, gait disturbance, hearing loss, loss of consciousness, numbness, seizure activity, speech changes, syncope, near syncope, tingling, tinnitus, tremor. Exam: 21:53 Constitutional: This is a well developed, well nourished patient who is awake, alert, kb and in no acute distress. Head/Face: Normocephalic, atraumatic. Eyes: Pupils equal round and reactive to light, extra-ocular motions intact. Lids and lashes normal. Conjunctiva and sclera are non-icteric and not injected. Cornea within normal limits. Periorbital areas with no swelling, redness, or edema. ENT: Nares patent. No nasal discharge, no septal abnormalities noted. Tympanic membranes are normal and external auditory canals are clear. Oropharynx with no redness, swelling, or masses, exudates, or evidence of obstruction, uvula midline. Mucous membranes moist. Neck: Trachea midline, no thyromegaly or masses palpated, and no cervical lymphadenopathy. Supple, full range of motion without nuchal rigidity, or vertebral point tenderness. No Meningismus. Chest/axilla: Normal chest wall appearance and motion. Nontender with no deformity. No lesions are appreciated. Cardiovascular: Regular rate and rhythm with a normal S1 and S2. No gallops, murmurs, or rubs. Normal PMI, no JVD. No pulse deficits. Respiratory: Lungs have equal breath sounds bilaterally, clear to auscultation and percussion. No rales, rhonchi or wheezes noted. No increased work of breathing, no retractions or nasal flaring. Abdomen/GI: Soft, non-tender, with normal bowel sounds. No distension or tympany. No guarding or rebound. No evidence of tenderness throughout. Back: No spinal tenderness. No costovertebral tenderness. Full range of motion. Skin: Warm, dry with normal turgor. Normal color with no rashes, no lesions, and no evidence of cellulitis. MS/ Extremity: Pulses equal, no cyanosis. Neurovascular intact. Full, normal range of motion. Neuro: Awake and alert, GCS 15, oriented to person, place, time, and situation. Cranial nerves II-XII grossly intact. Motor strength 5/5 in all extremities. Sensory grossly intact. Cerebellar exam normal. Normal gait. 22:41 ECG was reviewed by the Attending Physician. kb Vital Signs: 21:45 BP 143 / 77; Pulse 85; Resp 19; Temp 97.9; Pulse Ox 100% on R/A; Weight 127.01 kg; ed1 Height 6 ft. 1 in. (185.42 cm); Pain 0/10; 22:42 BP 124 / 70 Supine; Pulse 78; lt1 22:42 BP 129 / 85 Sitting; Pulse 81; lt1 22:42 BP 136 / 91 Standing; Pulse 84; lt1 22:55 BP 128 / 70; Pulse 76; Resp 16; Pulse Ox 99% on R/A; Pain 0/10; ls4 23:54 BP 115 / 68; Pulse 76; Resp 16; Pulse Ox 99% on R/A; Pain 0/10; ls4 21:45 Body Mass Index 36.94 (127.01 kg, 185.42 cm) ed1 MDM: 21:47 Patient medically screened. kb 21:53 Data reviewed: vital signs, nurses notes. Data interpreted: Pulse oximetry: on room air kb is 100 %. Interpretation: normal. 23:42 Test interpretation: by ED physician or midlevel provider: plain radiologic studies, kb neg. Counseling: I had a detailed discussion with the patient and/or guardian regarding: the historical points, exam findings, and any diagnostic results supporting the discharge/admit diagnosis, lab results, radiology results, the need for outpatient follow up, a family practitioner, to return to the emergency department if symptoms worsen or persist or if there are any questions or concerns that arise at home. 09/08 21:51 Order name: Basic Metabolic Panel; Complete Time: 22:40 kb 09/08 21:51 Order name: CBC with Diff; Complete Time: 22:40 kb 09/08 21:51 Order name: LFT's; Complete Time: 22:40 kb 09/08 21:51 Order name: Magnesium; Complete Time: 22:40 kb 09/08 21:51 Order name: NT PRO-BNP; Complete Time: 22:40 kb 09/08 21:51 Order name: PT-INR; Complete Time: 22:40 kb 09/08 21:51 Order name: Troponin (emerg Dept Use Only); Complete Time: 22:40 kb 09/08 21:51 Order name: XRAY Chest (1 view) kb 09/08 21:51 Order name: EKG; Complete Time: 21:52 kb 09/08 21:51 Order name: Cardiac monitoring; Complete Time: 21:52 kb 09/08 21:51 Order name: EKG - Nurse/Tech; Complete Time: 23:12 kb 09/08 21:51 Order name: CPK; Complete Time: 22:40 kb 09/08 21:51 Order name: Ckmb; Complete Time: 22:40 kb 09/08 21:51 Order name: IV Saline Lock; Complete Time: 23:13 kb 09/08 21:51 Order name: Labs collected and sent; Complete Time: 23:13 kb 09/08 21:51 Order name: O2 Per Protocol; Complete Time: 23:13 kb 09/08 21:51 Order name: O2 Sat Monitoring; Complete Time: 23:13 kb 09/08 21:51 Order name: Orthostatics; Complete Time: 22:53 kb EC:41 Rate is 80 beats/min. Rhythm is regular, Normal Sinus Rhythm. QRS [place] is Normal. [place] kb interval is normal at 148 msec. QRS interval is normal at 94 msec. QT interval is normal at 390 msec. Clinical impression: Normal ECG. Interpreted by me. Reviewed by me. Administered Medications: 23:13 Drug: NS 0.9% 1000 ml Route: IV; Rate: 1000 ml; Site: right antecubital; rv 23:54 Follow up: IV Status: Completed infusion; IV Intake: 1000ml ls4 Disposition: 09/09 00:01 Co-signature as Attending Physician, Juwan Childers MD. Disposition: 09/08/18 23:43 Discharged to Home. Impression: Weakness, Dizziness and giddiness. - Condition is Stable. - Discharge Instructions: Weakness, [id number], Dizziness, [id number]. - Medication Reconciliation Form, Thank You Letter, Antibiotic Education, Prescription Opioid Use, Work release form form. - Follow up: Emergency Department; When: As needed; Reason: Worsening of condition. Follow up: Private Physician; When: 2 - 3 days; Reason: Recheck today's complaints, Continuance of care, Re-evaluation by your physician. Signatures: Dispatcher [employer] EDMS Trudi Hicks, CANDY WARE-Nicky Wang RN RN ed1 Juwan Childers MD MD Maury Sheets, RN RN Jo Farley RN RN ls4 Corrections: (The following items were deleted from the chart) 09/08 23:56 23:43 09/08/2018 23:43 Discharged to Home. Impression: Weakness; Dizziness and ls4 giddiness. Condition is Stable. Forms are Medication Reconciliation Form, Thank You Letter, Antibiotic Education, Prescription Opioid Use. Follow up: Emergency Department; When: As needed; Reason: Worsening of condition. Follow up: Private Physician; When: 2 - 3 days; Reason: Recheck today's complaints, Continuance of care, Re-evaluation by your physician. kb
--- NOTE | 2018-09-09 07:30 | EKG ---
Test Date: 2018-09-08 Test Time: 22:00:22 Media Traffic Manager: CHICA MEASUREMENT RESULTS: Intervals: Rate: 80 IA: 148 QRSD: 94 QT: 390 QTc: 449 [place]son: P: 36 IA: 148 QRS: 38 T: 15 INTERPRETIVE STATEMENTS: Normal sinus rhythm Normal ECG Compared to ECG 04/26/2016 17:40:39 No significant changes Electronically Signed On 09-09-18 07:30:23 CDT by Felipe Zafar
--- NOTE | 2018-09-09 08:18 | RAD REPORT ---
EXAM DESCRIPTION: RAD - Chest Single View - 09/08/2018 10:11 pm CLINICAL HISTORY: CHEST PAIN Chest pain. COMPARISON: Chest Single View dated 04/26/2016; Chest Single View dated 11/29/2015; CHEST SINGLE VIEW dated 07/05/2015; CHEST PA AND LAT 2 VIEW dated 06/29/2014 FINDINGS: Portable technique limits examination quality. The lungs are grossly clear. The heart is normal in size. No displaced fractures. IMPRESSION: No acute intrathoracic process suspected.
== END 2018-09-08 23:56 | disposition home or self-care (01) ==
LOC: ER 21:34
DX: R53.1 Weakness (principal); R42 Dizziness and giddiness; F41.9 Anxiety disorder, unspecified; E11.9 Type 2 diabetes mellitus without complications; I10 Essential (primary) hypertension; Z72.0 Tobacco use
CPT/HCPCS: 36415; 71045; 80048; 80076; 82550; 82553; 83735; 83880; 84484; 85025; 85610; 93005; 96360; 99285; J7030

== ENCOUNTER 2020-10-09 07:12 | Emergency (ER) | payer SELFPAY ==
[2020-10-09 08:22] LABS: Absolute Lymphocytes (CBC) 0.5 K/uL (0.7-4.9); Basophils % 0.8 % (0-1.3); Hematocrit 38.1 % (39.6-49.0); Lymphocytes % 12.2 % (15.3-44.8); MPV 10.4 fL (7.6-11.3); RBC Red Blood Cell Count 4.51 M/uL (4.33-5.43)
[2020-10-09] MEDS ORDERED: NA CHLORIDE 0.9% 1,000 ML ONE (08:37)
[2020-10-09 08:43] LABS: BUN Blood Urea Nitrogen 9 mg/dL (7-18); Bicarbonate 25 mmol/L (21-32); Glucose Level 183 mg/dL (74-106); Potassium 3.6 mmol/L (3.5-5.1); Sodium Level 139 mmol/L (136-145)
[2020-10-09 09:39] LABS: Blood Morphology Comment NOT SEEN (NOT SEEN); Platelet Estimate ADEQ
[2020-10-09 09:58] LABS: SARS-COV-2 RT PCR POSITIVE (NEGATIVE)
--- NOTE | 2020-10-09 10:23 | RAD REPORT ---
EXAM DESCRIPTION: RAD - Chest Single View - 10/09/2020 8:42 am CLINICAL HISTORY: fever, cough Chest pain. COMPARISON: Chest Single View dated 09/08/2018; Chest Single View dated 04/26/2016; Chest Single View dated 11/29/2015; CHEST SINGLE VIEW dated 07/05/2015 FINDINGS: Portable technique limits examination quality. The lungs are grossly clear. The heart is normal in size. No displaced fractures. IMPRESSION: No acute intrathoracic process suspected.
--- NOTE | 2020-10-09 11:35 | ER ---
Nurse's Notes [facility] Name: Tyler Diamond Jr Age: 40 yrs Sex: Male : 1980 Arrival Date: 10/09/2020 Time: 07:15 Bed 20 Private MD: Tigre Alegria Diagnosis: Coronavirus infection, unspecified Presentation: 10/09 07:29 Chief complaint: Patient states: "I am feeling my heart feel like it is racing. i am jd3 having leg cramps and a dry cough as well.". Coronavirus screen: At this time, the client does not indicate any symptoms associated with coronavirus-19. Ebola Screen: Patient negative for fever greater than or equal to 101.5 degrees Fahrenheit, and additional compatible Ebola Virus Disease symptoms. Initial Sepsis Screen: Does the patient meet any 2 criteria? No. Patient's initial sepsis screen is negative. Does the patient have a suspected source of infection? No. Patient's initial sepsis screen is negative. Risk Assessment: Do you want to hurt yourself or someone else? Patient reports no desire to harm self or others. Onset of symptoms was October 08, 2020. 07:29 Acuity: ANNA MARIE 3 jd3 07:29 Method Of Arrival: Ambulatory jd3 Triage Assessment: 07:45 General: Appears distressed, uncomfortable, ill, Behavior is calm, cooperative, bp appropriate for age. Pain: Complains of pain in right leg and left leg. EENT: Nares with drainage noted Reports nasal congestion. Neuro: Level of Consciousness is awake, alert, obeys commands, Oriented to Appropriate for age. Cardiovascular: Rhythm is sinus tachycardia. Respiratory: Reports cough that is. GI: No signs and/or symptoms were reported involving the gastrointestinal system. : No signs and/or symptoms were reported regarding the genitourinary system. Derm: No deficits noted. Musculoskeletal: Reports BLE CRAMPING. Historical: - Allergies: 07:31 No Known Allergies; jd3 - Home Meds: :31 lisinopril 20 mg Oral tab 1 tab BID for Hypertension [Active]; metformin 500 mg Oral jd3 tab 1 tab 2 times per day [Active]; Xanax Oral as needed [Active]; - PMHx: 07:31 Anxiety; Diabetes - NIDDM; Hypertension; jd3 - PSHx: 07:31 None; jd3 - Immunization history:: Adult Immunizations up to date. - Social history:: Smoking status: Patient denies any tobacco usage or history of. - Family history:: not pertinent. - Hospitalizations: : No recent hospitalization is reported. Screenin:45 Abuse screen: Denies threats or abuse. Denies injuries from another. Nutritional bp screening: No deficits noted. Tuberculosis screening: No symptoms or risk factors identified. Fall Risk None identified. Assessment: 07:45 General: SEE TRIAGE NOTE. bp 10:30 Reassessment: No changes from previously documented assessment. Patient is alert, bp oriented x 3, equal unlabored respirations, skin warm/dry/pink. PT INFORMED OF COV+. 12:00 Reassessment: PT D/C HOME AMBULATORY WITH FAMILY, DX WITH CORONAVIRUS INFECTION. bp Vital Signs: 07:31 BP 146 / 81; Pulse 124; Resp 18 S; Temp 98.8(TE); Pulse Ox 99% on R/A; Weight 130.63 kg jd3 (R); Height 6 ft. 1 in. (185.42 cm) (R); Pain 8/10; 10:24 BP 131 / 83; Pulse 100; Resp 18; Temp 98.0(O); Pulse Ox 99% on R/A; mh5 11:00 BP 125 / 87; Pulse 99; Resp 9; Pulse Ox 97% ; bp 12:00 BP 120 / 74; Pulse 100; Resp 17; Temp 98.3; Pulse Ox 100% ; bp 07:31 Body Mass Index 38.00 (130.63 kg, 185.42 cm) jd3 ED Course: 07:15 Patient arrived in ED. mr 07:15 Tigre Alegria is Private Physician. mr 07:30 Triage completed. jd3 07:32 Arm band placed on. jd3 07:37 Dale Garza MD is Attending Physician. rn 07:38 Tien Myers, MIK is Primary Nurse. bp 07:45 Patient has correct armband on for positive identification. Bed in low position. Call bp light in reach. Side rails up X2. Adult w/ patient. property assessment monitor on. Pulse ox on. NIBP on. 08:08 Inserted saline lock: 20 gauge in right antecubital area, using aseptic technique. bp Blood collected. 08:25 CBC with Diff Sent. bp 08:42 XRAY Chest (1 view) In Process Unspecified. EDMS 12:00 No provider procedures requiring assistance completed. bp 12:00 IV discontinued, intact, bleeding controlled, No redness/swelling at site. Pressure bp dressing applied. Administered Medications: 08:10 Drug: NS 0.9% 1000 ml Route: IV; Rate: 1000 ml; Site: right antecubital; bp 12:00 Follow up: IV Status: Completed infusion; IV Intake: 1000ml bp 11:00 Drug: SOLU-Medrol (methylPrednisoLONE) 125 mg Route: IVP; Site: right forearm; bp 12:00 Follow up: Response: No adverse reaction bp Intake: 12:00 IV: 1000ml; Total: 1000ml. bp Outcome: 11:34 Discharge ordered by . rn 12:00 Discharged to home ambulatory, with family. bp 12:00 Condition: stable 12:00 Discharge instructions given to patient, Instructed on discharge instructions, follow up and referral plans. medication usage, Demonstrated understanding of instructions, follow-up care, medications, Prescriptions given X 1. 12:51 Patient left the ED. bp Signatures: Dispatcher [employer] EDIN Esvin Erika Dale Campbell MD MD rn Martinez, Maria 5 Amilcar Mosley RN RN jd3 Peltier, Brian, RN RN bp Corrections: (The following items were deleted from the chart) 12:49 11:30 BP 125 / 87; Pulse 99bpm; Resp 9bpm; Pulse Ox 97%; bp bp
--- NOTE | 2020-10-09 11:35 | EDPHYS ---
Physician Documentation [facility] Name: Tyler Diamond Jr Age: 40 yrs Sex: Male : 1980 Arrival Date: 10/09/2020 Time: 07:15 Bed 20 Private MD: Tigre Alegria Physician Dale Garza HPI: 10/09 08:04 This 40 yrs old Male presents to ER via Ambulatory with complaints of Heart rn Racing, Leg Pain, Fever. 08:04 The patient presents with a history of heart racing. Context: The symptoms occur at rn rest. Onset: The symptoms/episode began/occurred last night. Duration: The patient or guardian reports a single episode, that is still ongoing. Modifying factors: The symptoms are aggravated by nothing. The symptoms are alleviated by nothing. Associated signs and symptoms: Pertinent positives: cough, fever, Pertinent negatives: chest pain, SOB, syncope, vertigo, vomiting. Severity of symptoms: At their worst the symptoms were mild in the emergency department the symptoms are unchanged. The patient has not experienced similar symptoms in the past. The patient has not recently seen a physician. Reports last night began with fever of 100, assoc with dry cough, congestion, muscle aches, headache, fatigue. Has been here last few days with mother admitted for hernia problem. Denies chest pain or sob. No vomiting/diarrhea. Not COVID vaccinated.. Historical: - Allergies: 07:31 No Known Allergies; jd3 - Home Meds: 07:31 lisinopril 20 mg Oral tab 1 tab BID for Hypertension [Active]; metformin 500 mg Oral jd3 tab 1 tab 2 times per day [Active]; Xanax Oral as needed [Active]; - PMHx: 07:31 Anxiety; Diabetes - NIDDM; Hypertension; jd3 - PSHx: 07:31 None; jd3 - Immunization history:: Adult Immunizations up to date. - Social history:: Smoking status: Patient denies any tobacco usage or history of. - Family history:: not pertinent. - Hospitalizations: : No recent hospitalization is reported. 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 Exam: 08:04 Constitutional: This is a well developed, well nourished patient who is awake, alert, rn and in no acute distress, seems anxious Head/Face: Normocephalic, atraumatic. Eyes: Periorbital areas with no swelling, redness, or edema. ENT: No stridor Neck: Trachea midline, no masses palpated. Supple, full range of motion without nuchal rigidity, or vertebral point tenderness. No Meningismus. Cardiovascular: Tachycardic, regular. No pulse deficits. Respiratory: No increased work of breathing, no retractions or nasal flaring. Abdomen/GI: Soft, non-tender Skin: Warm, dry MS/ Extremity: Pulses equal, no cyanosis. Neuro: Awake and alert, GCS 15, oriented to person, place, time, and situation. Cranial nerves II-XII grossly intact. Motor strength 5/5 in all extremities. Sensory grossly intact. Cerebellar exam normal. Normal gait. Vital Signs: 07:31 BP 146 / 81; Pulse 124; Resp 18 S; Temp 98.8(TE); Pulse Ox 99% on R/A; Weight 130.63 kg jd3 (R); Height 6 ft. 1 in. (185.42 cm) (R); Pain 8/10; 10:24 BP 131 / 83; Pulse 100; Resp 18; Temp 98.0(O); Pulse Ox 99% on R/A; mh5 11:00 BP 125 / 87; Pulse 99; Resp 9; Pulse Ox 97% ; bp 12:00 BP 120 / 74; Pulse 100; Resp 17; Temp 98.3; Pulse Ox 100% ; bp 07:31 Body Mass Index 38.00 (130.63 kg, 185.42 cm) jd3 MDM: 07:37 Patient medically screened. rn 11:34 Differential diagnosis: dehydration, stress disorder, COVID. Data reviewed: vital rn signs, nurses notes, lab test result(s), radiologic studies, plain films, and as a result, I will discharge patient. Counseling: I had a detailed discussion with the patient and/or guardian regarding: the historical points, exam findings, and any diagnostic results supporting the discharge/admit diagnosis, lab results, radiology results, the need for outpatient follow up, to return to the emergency department if symptoms worsen or persist or if there are any questions or concerns that arise at home. Response to treatment: the patient's symptoms have mildly improved after treatment, and as a result, I will discharge patient. Special discussion: I discussed with the patient/guardian in detail that at this point there is no indication for admission to the hospital. It is understood, however, that if the symptoms persist or worsen the patient needs to return immediately for re-evaluation. Based on the history and exam findings, there is no indication for further emergent testing or inpatient evaluation. I discussed with the patient/guardian the need to see the primary care provider for further evaluation of the symptoms. 10/09 07:46 Order name: CBC with Diff 10/09 07:46 Order name: Basic Metabolic Panel; Complete Time: 10: 10/09 07:46 Order name: Strep; Complete Time: : 10/09 07:46 Order name: Dupage Screen Profile; Complete Time: 10: 10/09 07:46 Order name: IV Start; Complete Time: 08:13 10/09 07:46 Order name: XRAY Chest (1 view); Complete Time: 10: 10/09 07:47 Order name: CBC with Automated Diff; Complete Time: 10: [facility] 10/09 08:25 Order name: Manual Differential; Complete Time: 10: [facility] 10/09 09:20 Order name: Throat Culture [facility] 10/09 09:59 Order name: COVID-19/FLU A+B; Complete Time: 10: [facility] 10/09 07:46 Order name: Glucose Level; Complete Time: 08:19 rn Administered Medications: 08:10 Drug: NS 0.9% 1000 ml Route: IV; Rate: 1000 ml; Site: right antecubital; bp 12:00 Follow up: IV Status: Completed infusion; IV Intake: 1000ml bp 11:00 Drug: SOLU-Medrol (methylPrednisoLONE) 125 mg Route: IVP; Site: right forearm; bp 12:00 Follow up: Response: No adverse reaction bp Disposition: 10/09/20 11:34 Discharged to Home. Impression: Coronavirus infection, unspecified. - Condition is Stable. - Discharge Instructions: COVID-19. - Prescriptions for Prednisone 20 mg Oral Tablet - take 1 tablet by ORAL route as directed for 14 days Take 2 tablets by mouth daily for 7 days, followed by 1 tablet by mouth for 7 days.; 21 tablet. - Medication Reconciliation Form, Thank You Letter, Antibiotic Education, Prescription Opioid Use form. - Follow up: Private Physician; When: As needed; Reason: Recheck today's complaints, Re-evaluation by your physician. - Problem is new. - Symptoms have improved. Signatures: Dispatcher [employer] EDMS Dale Garza MD MD rn Davies, Jonathon RN RN Tien Pruitt RN RN bp Corrections: (The following items were deleted from the chart) 09:06 07:47 CORONAVIRUS+MR.LAB.BRZ ordered. EDAR EDMS 09:07 07:47 Influenza Screen (A \T\ B)+BA.LAB.BRZ ordered. EDAR EDMS 12:51 11:34 10/09/2020 11:34 Discharged to Home. Impression: Coronavirus infection, bp unspecified. Condition is Stable. Forms are Medication Reconciliation Form, Thank You Letter, Antibiotic Education, Prescription Opioid Use. Follow up: Private Physician; When: As needed; Reason: Recheck today's complaints, Re-evaluation by your physician. Problem is new. Symptoms have improved. rn
[2020-10-09] MEDS ORDERED: METHYLPREDNISOLONE 125 MG INJ ONE (12:09)
[2020-10-09 13:19] VITALS: BP 120/74; TEMP 98.3; O2SAT 100
== END 2020-10-09 12:51 | disposition home or self-care (01) ==
LOC: ER 07:12
DX: U07.1 COVID-19 (principal); I10 Essential (primary) hypertension; E11.9 Type 2 diabetes mellitus without complications; F41.9 Anxiety disorder, unspecified
CPT/HCPCS: 0240U; 36415; 71045; 80048; 85025; 86308; 87070; 87081; 96361; 96374; 99284; J2930; J7030